=== PATIENT | female | born 1980 | race African-American/Black ===

== ENCOUNTER 2019-09-30 20:30 | Emergency (ER) | payer OTHER ==
[~2019-09-30] VITALS: Ht 170.2 cm; Wt 71.2 kg
[2019-09-30] MEDS ORDERED: PREDNISONE 5 MG5 M1 PO (20:38)
[2019-09-30] MEDS ORDERED: BENADRYL ALLERG25 MG PO (20:39)
[2019-09-30 23:20] VITALS: BP 168/95
== END 2019-09-30 23:20 | disposition home or self-care (01) ==
LOC: ER 20:30
DX: R22.0 Localized swelling, mass and lump, head (principal); I10 Essential (primary) hypertension; F17.210 Nicotine dependence, cigarettes, uncomplicated; Z79.899 Other long term (current) drug therapy; Z91.041 Radiographic dye allergy status; Z88.8 Allergy status to other drugs, medicaments and biological substances; Z88.5 Allergy status to narcotic agent